=== PATIENT | male | born 1960 | race Caucasian/White ===

== ENCOUNTER 2017-09-09 17:02 | Inpatient (IN) | payer OTHER ==
[~2017-09-09] VITALS: Ht 172.7 cm; Wt 85.6 kg
[2017-09-09 14:27] LABS: ABSOLUTE BASOPHILS 0.1 thou/uL (0.0-0.2); ABSOLUTE EOSINOPHILS 0.1 thou/uL (0.0-0.7); ABSOLUTE LYMPHOCYTES 1.4 thou/uL (0.8-5.3); ABSOLUTE MONOCYTES 1.3 thou/uL (0.0-1.2); ABSOLUTE NEUTROPHILS 10.1 thou/uL (1.6-8.1); BASOPHILS 0.4 %; EOSINOPHILS 1.1 %; HEMATOCRIT 43.3 % (42.0-52.0); HEMOGLOBIN 14.6 gm/dL (14.0-18.0); LYMPHOCYTES 10.5 %; MCH 31.9 pg (26.0-34.0); MCHC 33.7 g/dL (28.0-37.0); MCV 94.6 fL (80.0-100.0); MPV 7.7 fl. (7.2-11.1); NUCLEATED RBCS 0 /100WBC; PLATELET COUNT* 293 thou/uL (150-400); RBC 4.57 mil/uL (4.50-6.00); RDW-CV 13.4 % (10.5-14.5)
[2017-09-09 14:36] LABS: CALCIUM 9.1 mg/dL (8.5-10.1); CREATININE 1.2 mg/dL (0.6-1.3); POTASSIUM 4.1 mmol/L (3.5-5.1)
[2017-09-09 14:40] LABS: ALBUMIN 3.5 g/dL (3.4-5.0); TOTAL BILIRUBIN 0.5 mg/dL (<0.1-1.0); TOTAL PROTEIN 8.3 g/dL (6.4-8.2)
[2017-09-09 17:15] VITALS: BP 169/60
[2017-09-09] MEDS ORDERED: LISINOPRIL30 MG PO (17:23)
[2017-09-09] MEDS ORDERED: CRESTOR (17:24)
[2017-09-09 17:30] LABS: ESR (SEDRATE) 71 mm/hr (0-20)
[2017-09-09 19:01] LABS: BE 0.7 mmol/L (-2 to +3); HCO3 25.7 mmol/L (22.0-26.0); PCO2 VENOUS 42.5 mmHg (41.0-51.0); PO2 VENOUS 44.2 mmHg (35.0-45.0)
[2017-09-09 21:45] VITALS: BP 155/93
[2017-09-10 04:00] VITALS: BP 141/86
[2017-09-10 04:52] LABS: CALCIUM 8.9 mg/dL (8.5-10.1); CREATININE 1.1 mg/dL (0.6-1.3); PHOSPHORUS* 3.7 mg/dL (2.5-4.9); POTASSIUM 3.9 mmol/L (3.5-5.1)
[2017-09-10 04:54] LABS: ABSOLUTE EOSINOPHILS 0.2 thou/uL (0.0-0.7); ABSOLUTE LYMPHOCYTES 1.2 thou/uL (0.8-5.3); ABSOLUTE MONOCYTES 1.3 thou/uL (0.0-1.2); ABSOLUTE NEUTROPHILS 8.9 thou/uL (1.6-8.1); BASOPHILS 0.3 %; EOSINOPHILS 1.4 %; HEMATOCRIT 39.5 % (42.0-52.0); HEMOGLOBIN 13.2 gm/dL (14.0-18.0); LYMPHOCYTES 10.5 %; MCH 31.5 pg (26.0-34.0); MCHC 33.3 g/dL (28.0-37.0); MCV 94.6 fL (80.0-100.0); MONOCYTES 10.8 %; MPV 7.7 fl. (7.2-11.1); NUCLEATED RBCS 0 /100WBC; PLATELET COUNT* 262 thou/uL (150-400); RBC 4.17 mil/uL (4.50-6.00); RDW-CV 13.6 % (10.5-14.5); WBC 11.6 thou/uL (4.0-11.0)
--- NOTE | 2017-09-10 07:16 | NUR ---
PT ADMITTED TO UNIT. ADMISSION CHARTED. ASSESSMENT DOCUMENTED. MEDS GIVEN PER E-MAR. PT REPORTED MILD PAIN BUT DID NOT WANT ANYTHING FOR THE PAIN. IV PATENT, FLUIDS INFUISNG. WILL CONTINUE WITH PLAN OF CARE.
--- NOTE | 2017-09-10 07:30 | NUR ---
RECIEVED REPORT. ASSUMED CARE OF PT AT 0730. VSS. PT MED-SURG STATUS. PT ON RA. IVF INFUSING THIS AM. PT DENIES ANY PAIN TO ABDOMEN THIS AM. PT REPORTS IT FEELS MUCH BETTER. PT HAD BM T-1. PT NPO PER SURGERY THIS AM. PT IS UP INDPENDENTLY THIS AM. PT INFORMED OF PLAN OF CARE. CALL LIGHT IS WITHIN REACH. WILL CONTINUE TO MONITOR FOR DURATION OF SHIFT.
[2017-09-10 07:51] VITALS: BP 132/78
[2017-09-10 10:21] LABS: URINE BILIRUBIN NEGATIVE (Negative); URINE BLOOD TRACE (Negative); URINE CLARITY CLEAR; URINE COLOR YELLOW; URINE GLUCOSE-RANDOM NEGATIVE (Negative); URINE KETONES NEGATIVE (Negative); URINE LEUKOCYTES-REFLEX NEGATIVE (Negative); URINE NITRITE-REFLEX NEGATIVE (Negative); URINE PROTEIN NEGATIVE (Negative); URINE UROBILINOGEN 0.2 E.U./dl (0.2-1.0)
--- NOTE | 2017-09-10 12:41 | EKG ---
[place] [address] ELECTROCARDIOGRAM REPORT Name: RODRIGO PRADO Room: [address] IN [facility]#: [id number] Admission: 09/09/17 Attend Phys: Letty Williamson MD Discharge: Date of : 58 Report #: [id number] THIS REPORT FOR: //name// [facility] ED Test Date: 2017-09-09 Test Time: 17:58:20 Pat Name: RODRIGO ROSENBERGYENI Department: Room: Gender: Medicare Interviewer: Connor WAYNE : 1960 Requested By: Perri Morgan Order Number: [id number] MD: Sang Rosen Measurements Intervals [place] Rate: 76 P: 8 MA: 123 QRS: 8 QRSD: 90 T: 31 QT: 393 QTc: 442 Interpretive Statements Sinus rhythm Abnormal R-wave progression, early transition Minimal ST elevation, anterior leads No previous ECG available for comparison Electronically Signed On 09-10-2017 12:40:53 CDT by Sang Rosen [email or web address] <ELECTRONICALLY SIGNED> By: Sang Rosen MD, FACC 09/10/17 1240 1758 1758 Sang Rosen MD, [facility] /EPI
[2017-09-10 15:53] VITALS: BP 133/78
--- NOTE | 2017-09-10 17:22 | NUR ---
VSS. PT REMAINS MED-SURG STATUS. PT PROGRESSING TOWARDS GOALS. PT REMAINS ON RA. IV PROCAL INFUSING. PT HAS VOICED NO COMPLAINTS OF PAIN OR DISCOMFORT THIS SHIFT. PT AMBULATED IN ROGER THIS SHIFT. PAGED SURGERY ASKING IF PT CAN ADVANCE DIET. PHYSCIAIN SAID HE WOULD TALK TO DR. HIRSCH AND EITHER CALL BACK OR PUT ORDER IN COMPUTER BUT HAS NOT DONE EITHER. PT INFORMED OF PLAN OF CARE. CALL LIGHT IS WITHIN REACH. WILL CONTINUE TO MONITOR FOR DURATION OF SHFIT.
[2017-09-10 20:00] VITALS: BP 145/82
[2017-09-11] VITALS: BP 130/78
--- NOTE | 2017-09-11 01:55 | NUR ---
PATIENT ALERT AND ORIENTED X 4, UP TO BATHROOM AD SHELTON WITH STEADY GAIT. TOOK SHOWER. REMAINS NPO. NO COMPLAINTS OF PAIN, DISCOMFORT OR SOA. CONT. PPN AT 125. NO SIGNS OF DISTRESS. CONT. WITH COURRENT PLAN OF CARE AT THIS TIME.
[2017-09-11 05:06] LABS: ABSOLUTE EOSINOPHILS 0.1 thou/uL (0.0-0.7); ABSOLUTE LYMPHOCYTES 1.4 thou/uL (0.8-5.3); ABSOLUTE MONOCYTES 1.2 thou/uL (0.0-1.2); ABSOLUTE NEUTROPHILS 9.5 thou/uL (1.6-8.1); BASOPHILS 0.1 %; EOSINOPHILS 0.9 %; HEMOGLOBIN 13.5 gm/dL (14.0-18.0); LYMPHOCYTES 11.5 %; MCH 31.6 pg (26.0-34.0); MCV 95.6 fL (80.0-100.0); MONOCYTES 9.7 %; MPV 7.8 fl. (7.2-11.1); NUCLEATED RBCS 0 /100WBC; PLATELET COUNT* 292 thou/uL (150-400); POLYS 77.8 %; RBC 4.29 mil/uL (4.50-6.00); RDW-CV 13.4 % (10.5-14.5); WBC 12.2 thou/uL (4.0-11.0)
[2017-09-11 05:26] LABS: ALBUMIN 2.8 g/dL (3.4-5.0); CALCIUM 9.1 mg/dL (8.5-10.1); CREATININE 1.2 mg/dL (0.6-1.3); MAGNESIUM 2.3 mg/dL (1.8-2.4); POTASSIUM 3.9 mmol/L (3.5-5.1); TOTAL BILIRUBIN 0.4 mg/dL (<0.1-1.0); TOTAL PROTEIN 7.2 g/dL (6.4-8.2)
--- NOTE | 2017-09-11 07:30 | NUR ---
RECEIVED REPORT. ASSUMED CARE OF PT AT 0730. VSS. PT MED-SURG STATUS. PT ALERT AND ORIETNED. PT ON RA. IV PROCAL INFUSING THIS AM. PT DENIES ANY COMPLAINTS OF PAIN OR DISCOMFORT. PT DENIES ANY N/V. PT HAD BM T-2 PT PASSING GAS. PT IS UP AD SHELTON IN ROOM. DISCUSSED POSSIBLITY OF ADVANCING DIET PER SURGERY TODAY. PT COMMUNICATES UNDERSTANDING. CALLLIGHT IS WITHIN REACH. WILL CONTINUE TO MONITOR FOR DURAITON OF SHIFT.
[2017-09-11 07:32] VITALS: BP 136/85
[2017-09-11 16:06] VITALS: BP 139/78
--- NOTE | 2017-09-11 18:27 | NUR ---
I ASSUMED CARE OF THE PATIENT AT AT 1330 A TRANSFER. HE IS ALERT AND ORIENTED X4 AND IS UP AD SHELTON. BED IS IN THE LOW LOCKED POSITION AND CALL LIGHT IS IN REACH. HOURLY ROUNDING WAS COMPLETED AND PATIENT NEEDS WERE MET. PAIN IS DENIED. PATIENT IS NPO AT MIDNIGHT FOR A CT OF ABD IN THE AM. WILL CONTINUE TO MONITOR.
[2017-09-11 22:00] VITALS: BP 122/68
[2017-09-12 04:17] LABS: ABSOLUTE EOSINOPHILS 0.2 thou/uL (0.0-0.7); ABSOLUTE LYMPHOCYTES 1.8 thou/uL (0.8-5.3); ABSOLUTE MONOCYTES 1.2 thou/uL (0.0-1.2); ABSOLUTE NEUTROPHILS 7.2 thou/uL (1.6-8.1); BASOPHILS 0.5 %; EOSINOPHILS 1.7 %; HEMATOCRIT 41.4 % (42.0-52.0); HEMOGLOBIN 13.8 gm/dL (14.0-18.0); LYMPHOCYTES 17.1 %; MCH 31.8 pg (26.0-34.0); MCHC 33.4 g/dL (28.0-37.0); MCV 95.3 fL (80.0-100.0); MONOCYTES 11.3 %; MPV 7.6 fl. (7.2-11.1); NUCLEATED RBCS 0 /100WBC; PLATELET COUNT* 339 thou/uL (150-400); POLYS 69.4 %; RBC 4.35 mil/uL (4.50-6.00); RDW-CV 13.5 % (10.5-14.5); WBC 10.3 thou/uL (4.0-11.0)
[2017-09-12 05:17] LABS: CALCIUM 8.9 mg/dL (8.5-10.1); CREATININE 1.1 mg/dL (0.6-1.3); POTASSIUM 4.1 mmol/L (3.5-5.1)
[2017-09-12 11:49] VITALS: BP 122/68
[2017-09-12] MEDS ORDERED: CIPRO500 MG PO (11:54)
[2017-09-12] MEDS ORDERED: FLAGYL500 MG PO (11:54)
--- NOTE | 2017-09-12 13:00 | NUR ---
PATIENT GIVEN DISCHARGE INSTRUCTIONS AT THIS TIME. PATIENT'S PRESCRIPTIONS OF CIPRO AND FLAGYL CALLED TO [facility] AND SPOKE WITH MIRANDA. PATIENT GIVEN DIET INFORMATION FOR DIVERTICULITIS. PATIENT VERBALIZED UNDERSTANDING IN REGARDS TO FOLLOW UP APPOINTMENTS AND NEW MEDICATIONS. PATIENT DISCHARGED TO HOME WITH ALL BELONGINGS. AMBULATED OFF NURSING UNIT WITH NURSING STAFF.
== END 2017-09-12 13:02 | disposition home or self-care (01) | DRG 872 ==
LOC: M.ORTHSURG 20:17 → M.TBA-ER 20:17 → M.2W 20:17 → M.ORTHSURG 09-11 13:31
PROVIDERS: Nurse Practitioner Family; Personal Emergency Response Attendant; Surgery; ADMIT Internal Medicine
DX: A41.9 Sepsis, unspecified organism (principal); K57.20 Diverticulitis of large intestine with perforation and abscess without bleeding; E44.1 Mild protein-calorie malnutrition; I10 Essential (primary) hypertension; E78.5 Hyperlipidemia, unspecified; Z96.653 Presence of artificial knee joint, bilateral; Z79.899 Other long term (current) drug therapy; Z68.28 Body mass index [BMI] 28.0-28.9, adult